=== PATIENT | male | born 1950 | race Caucasian/White ===

== ENCOUNTER 2023-05-21 06:14 | Day surgery (SDC) | payer MEDICARE, BC ==
[2023-05-21] MEDS: Lactated Ringers 1,000 ML IV SCH (06:29)
[2023-05-21] MEDS ORDERED: fentaNYL 100 MCG/2 ML SDV ONE (07:48)
[2023-05-21] MEDS ORDERED: Midazolam 1 MG/ML 2 ML SDV ONE (07:48)
[2023-05-21] MEDS ORDERED: Propofol 200 MG/20 ML SDV ONE (07:48)
[2023-05-21 09:24] VITALS: BP 159/68; PULSE 72
== END 2023-05-21 09:25 | disposition home or self-care (01) ==
LOC: VM.SDS 06:14
PROVIDERS: ATTEND Student in an Organized Health Care Education/Training Program
DX: Z12.11 Encounter for screening for malignant neoplasm of colon (principal); D12.0 Benign neoplasm of cecum; Q43.8 Other specified congenital malformations of intestine; E78.5 Hyperlipidemia, unspecified; I11.0 Hypertensive heart disease with heart failure; I50.9 Heart failure, unspecified; I25.10 Atherosclerotic heart disease of native coronary artery without angina pectoris; E11.9 Type 2 diabetes mellitus without complications; E66.9 Obesity, unspecified; N40.0 Benign prostatic hyperplasia without lower urinary tract symptoms; N18.30 Chronic kidney disease, stage 3 unspecified; M10.9 Gout, unspecified; G47.33 Obstructive sleep apnea (adult) (pediatric); Z79.4 Long term (current) use of insulin; Z79.84 Long term (current) use of oral hypoglycemic drugs; Z79.82 Long term (current) use of aspirin; Z79.899 Other long term (current) drug therapy; Z88.8 Allergy status to other drugs, medicaments and biological substances; Z88.7 Allergy status to serum and vaccine; Z87.891 Personal history of nicotine dependence
CPT/HCPCS: 00812; 82947; 88305; J2250; J2704; J3010; J7120